=== PATIENT | female | born 1955 | race Hispanic/Latino ===

== ENCOUNTER 2022-05-08 18:18 | Emergency (ER) | payer MEDICARE, OTHER ==
[~2022-05-08] VITALS: Ht 157.5 cm; Wt 79.4 kg
[2022-05-08] MEDS ORDERED: ACETAMINOPHEN/CODEINE 300MG - 30MG TAB PO ONE (19:15)
[2022-05-08] MEDS ORDERED: ULTRAM 50MG50 MG PO (21:04)
== END 2022-05-08 21:09 | disposition home or self-care (01) ==
LOC: ER 18:26
DX: S52.502A Unspecified fracture of the lower end of left radius, initial encounter for closed fracture (principal); S52.602A Unspecified fracture of lower end of left ulna, initial encounter for closed fracture; W01.0XXA Fall on same level from slipping, tripping and stumbling without subsequent striking against object, initial encounter; Y93.H2 Activity, gardening and landscaping; Y92.017 Garden or yard in single-family (private) house as the place of occurrence of the external cause
CPT/HCPCS: 99284

== ENCOUNTER 2022-07-06 10:30 | Emergency (ER) | payer MEDICARE ==
[~2022-07-06] VITALS: Ht 157.5 cm; Wt 79.4 kg
[~2022-07-06 10:30] MED LIST: ULTRAM 50MG50 MG PO
[2022-07-06 10:33] VITALS: O2SAT 100
== END 2022-07-06 11:50 | disposition home or self-care (01) ==
LOC: ER 10:34
DX: R50.9 Fever, unspecified (principal); U07.1 COVID-19; I10 Essential (primary) hypertension; E78.5 Hyperlipidemia, unspecified; M81.0 Age-related osteoporosis without current pathological fracture
CPT/HCPCS: 0223U; 36415; 71046; 87400; 99282